=== PATIENT | male | born 1960 | race Caucasian/White ===

== ENCOUNTER → 2023-01-31 11:06 | Outpatient (CLI) | payer BC, SELFPAY ==
--- NOTE | ~2023-01-31 | MR_ITS ---
MRI of the lumbar spine Clinical History: Back pain Technique: Axial T2-weighted images, and sagittal T1-weighted, T2-weighted, and T2 fat-sat images wer e acquired. Findings: No fracture seen lumbar spine. Minimal grade 1 retrolisthesis of L2 over L3 noted. There ar e reactive marrow signal changes about the L1-L2 disc space. At L1-L2, there is moderate degenerative disc narrowing with moderate to advanced facet arthropathy. No disc bulge or herniation. No spinal canal stenosis or neural foraminal narrowing. At L2-L3, there is minimal degenerative disc narrowing with mild facet arthropathy. No central canal stenosis or neural foraminal narrowing. No disc bulge or herniation. At L3-L4, there is no disc bulge or herniation. There is advanced facet arthropathy. No central canal stenosis or neural foraminal narrowing. At L4-L5, there is minimal disc bulge with moderate facet arthropathy. No central canal stenosis or n eural foraminal narrowing. At L5-S1, there is minimal disc bulge and mild facet arthropathy. No central canal stenosis or neural foraminal narrowing. Paravertebral soft tissues are unremarkable. Impression: Mild degenerative spondylosis overall, as detailed above. Minimal grade 1 retrolisthesis of L2 over L3. Reviewed, dictated and finalized at location . Impression: Mild degenerative spondylosis overall, as detailed above. Minimal grade 1 retrolisthesis of L2 over L3.
== END ==
PROVIDERS: PCP Internal Medicine
DX: M47.816 Spondylosis without myelopathy or radiculopathy, lumbar region (principal); M43.16 Spondylolisthesis, lumbar region
CPT/HCPCS: 72148